=== PATIENT | female | born 1935 | race Caucasian/White ===

== ENCOUNTER 2021-11-23 20:06 | Inpatient (IN) | payer MEDICARE, OTHER ==
[~2021-11-23] VITALS: Ht 152.4 cm; Wt 73.1 kg
[2021-11-23 21:03] LABS: COLLECTION METHOD CLEAN CATCH
[2021-11-23 21:09] LABS: PH 5 (5-8); URINE APPEARANCE Clear (CLEAR/HAZY); URINE BACTERIA Rare /hpf (NONE SEEN); URINE BILIRUBIN Negative (NEGATIVE); URINE BLOOD 1+ (NEGATIVE); URINE COLOR Straw (YELLOW); URINE GLUCOSE Negative (NEGATIVE); URINE KETONE Negative (NEGATIVE); URINE LEUKOCYTE ESTERASE 1+ (NEGATIVE); URINE NITRATE Negative (NEGATIVE); URINE PROTEIN(semi-quant) Negative (NEGATIVE); URINE RBC 0-2 /hpf (0-2); URINE UROBILINOGEN Negative (NEGATIVE)
[2021-11-23 21:24] LABS: BASO % 0.5 % (0.0-2.0); EOS # 0.1 K/mm3 (0.0-0.7); GRAN # 3.4 K/mm3 (1.4-6.5); HEMOGLOBIN 11.6 g/dl (12.5-16.0); LYMPH # 1.3 K/mm3 (1.2-3.4); MEAN CELL VOLUME 78 fl (80.0-100.0); MEAN CORPUSCULAR HEMOGLOBIN 28 pg (27-31); MEAN CORPUSCULAR HGB CONC 36 g/dl (33.0-37.0); MEAN PLATELET VOLUME 9.5 fl (7.4-10.4); MONO # 0.7 K/mm3 (0.1-0.6); MONO % 12.8 % (1.7-9.3); PLATELET COUNT 233 K/mm3 (130-400); RED BLOOD COUNT 4.16 M/mm3 (4.10-5.30); REDCELL DISTRIBUTION WIDTH-CV 12.4 % (11.5-14.5)
[2021-11-23 21:29] LABS: HEMATOCRIT 32.4 % (37.0-47.0)
[2021-11-23 21:53] LABS: ALBUMIN 3.8 gm/dL (3.4-4.8); BILIRUBIN,TOTAL 0.7 mg/dL (0.2-1.2); CALCIUM 8.4 mg/dL (8.4-10.2); CREATININE, serum 1.79 mg/dL (0.57-1.11); POTASSIUM 4.1 mmol/L (3.5-4.5); TOTAL PROTEIN 6.6 gm/dL (6.2-8.1)
[2021-11-23 23:51] LABS: MAGNESIUM 1.5 mg/dL (1.6-2.6); PHOSPHOROUS 3.2 mg/dL (2.3-4.7)
[2021-11-24] VITALS (559 sets, daily range): BP systolic 111–152; BP diastolic 42–73; PULSE 59–70; TEMP 97.5–98.2; O2SAT 39–100
[2021-11-24 00:11] LABS: TSH w REFLEX 2.869 uIU/mL (0.350-4.940)
[2021-11-24 06:45] LABS: CALCIUM 7.9 mg/dL (8.4-10.2); CREATININE, serum 1.73 mg/dL (0.57-1.11); POTASSIUM 3.7 mmol/L (3.5-4.5)
[2021-11-24 07:22] LABS: BASO % 0.7 % (0.0-2.0); EOS # 0.1 K/mm3 (0.0-0.7); EOS % 1.8 % (0.0-4.0); GRAN # 2.8 K/mm3 (1.4-6.5); GRAN % 60.7 % (42.2-75.2); MEAN CELL VOLUME 79 fl (80.0-100.0); MEAN CORPUSCULAR HEMOGLOBIN 28 pg (27-31); MEAN CORPUSCULAR HGB CONC 36 g/dl (33.0-37.0); MEAN PLATELET VOLUME 10.4 fl (7.4-10.4); MONO # 0.6 K/mm3 (0.1-0.6); MONO % 14.1 % (1.7-9.3); PLATELET COUNT 175 K/mm3 (130-400); RED BLOOD COUNT 3.93 M/mm3 (4.10-5.30); REDCELL DISTRIBUTION WIDTH-CV 12.4 % (11.5-14.5)
--- NOTE | 2021-11-24 09:56 | NUR ---
BEDSIDE SHIFT REPORT RECIEVED FROM VU ANGEL. PT CURRENTLY SLEEPING. LINE RUNNING (SEE DRIP FLOWSHEET). VSS, NO ACUTE CHANGES REPORTED OVERNIGHT. BED IN LOWEST POSITION, BED ALARM ON, CALL LIGHT WITHIN REACH. DAUGHTER AT BEDSIDE.
[2021-11-24 11:08] LABS: CALCIUM 7.9 mg/dL (8.4-10.2); CREATININE, serum 1.7 mg/dL (0.57-1.11); POTASSIUM 3.8 mmol/L (3.5-4.5)
--- NOTE | 2021-11-24 11:23 | NUR ---
REPORT GIVEN TO VU WALLACE. PT TRANSFERED TO BED IN WHEELCHAIR WITH FLUIDS (SEE DRIP SHEET) NO SUPP O2 NEEDED. PT PLACED IN BED, BED IN LOWEST POSITION, CALL LIGHT WITHIN REACH AND BEDALARM ON
--- NOTE | 2021-11-24 11:25 | NUR ---
Patient arrived to room 353 from ICU. Patient is A&Ox3, unable to correctly state the date. Patient has NS running at 125mL/hr into her IV; Magnesium Sulfate also infusing at 100mL/hr. Patient tolerating this well. Patient denies any concerns at this time and states she feels okay. Daughter reported that patient has passed gas. Patient denies the urge to have a BM.
[2021-11-24 15:37] LABS: CALCIUM 7.9 mg/dL (8.4-10.2); CREATININE, serum 1.66 mg/dL (0.57-1.11); POTASSIUM 3.9 mmol/L (3.5-4.5)
--- NOTE | 2021-11-24 16:33 | NUR ---
Patient's daughter called stating the patient needed to use the restroom. PCT stated they would be down in 1min. Approx 30seconds after the patient called, the daughter came running down the hallway stating "she is gonna throw up, you better hurry up and get down here" and then ran back to the room. This RN followed right behind w/ an emesis basin, patient had already vomited on the bed and floor. This RN and the PCT cleaned the patient up and replaced the sheets. Patient's daughter then requested that the patient be taken on a walk. Patient agreed to this. Patient does not express any concerns or needs at this time. Family makes a majority of the requests and decisions for the patient, as patient has dementia.
--- NOTE | 2021-11-24 18:34 | NUR ---
Patient has had a few episodes of emesis. Dr. Guidry called for zofran, order placed by this RN. Patient has also had multiple BMs, family concerned for C-Diff. Dr. Guidry informed and this RN requested and order for a stool sample. Dr. Guidry agreed w/ this recommendation. IV in the right forearm was leaky and causing pain, new IV started in the right AC by James.
[2021-11-24 19:21] LABS: CALCIUM 8.3 mg/dL (8.4-10.2); CREATININE, serum 1.63 mg/dL (0.57-1.11)
--- NOTE | 2021-11-24 21:00 | NUR ---
PATIENT IS RESTING IN THE BED.PATIENT IS ALERT AND ORIENTED BUT FORGETFUL AND CONFUSED SOMETIMES.PATIENT IS ON IV FLUIDS DRIPPING WELL.PATIENT DENIES PAIN.PATIENT'S DAUGHTER IS STAYING WITH THE PATIENT OVERNIGHT.SAFETY MEASURES IN PLACE.NO OTHER NEEDS AT THIS TIME.
[2021-11-24 22:49] LABS: CALCIUM 7.9 mg/dL (8.4-10.2); CREATININE, serum 1.63 mg/dL (0.57-1.11)
[2021-11-25 01:18] VITALS: BP 145/61; PULSE 68; TEMP 98.6
[2021-11-25 02:55] LABS: CALCIUM 7.7 mg/dL (8.4-10.2); CREATININE, serum 1.57 mg/dL (0.57-1.11); POTASSIUM 3.7 mmol/L (3.5-4.5)
[2021-11-25 04:42] VITALS: BP 100/61; PULSE 62; TEMP 97.5
--- NOTE | 2021-11-25 06:13 | NUR ---
PATIENT SLEPT THROUGH THE NIGHT.PATIENT'S DAUGHTER SPENT THE NIGHT WITH THE PATIENT.IV NS IN GOOD PROGRESS.PATIENT IS IN Q4 BMPS.STOOL SAMPLE IS PENDING.NO OTHER NEEDS AT THIS TIME.
[2021-11-25 07:24] LABS: CALCIUM 7.5 mg/dL (8.4-10.2); CREATININE, serum 1.59 mg/dL (0.57-1.11); POTASSIUM 3.6 mmol/L (3.5-4.5)
[2021-11-25 08:26] VITALS: BP 123/62; PULSE 64; TEMP 98.2
[2021-11-25 11:11] LABS: CALCIUM 8.1 mg/dL (8.4-10.2); CREATININE, serum 1.65 mg/dL (0.57-1.11); POTASSIUM 3.6 mmol/L (3.5-4.5)
[2021-11-25 12:14] VITALS: BP 135/59; PULSE 67; TEMP 98
--- NOTE | 2021-11-25 13:52 | NUR ---
Manipulative Therapy Specialist met with patient and patient's daughter, Felicia (ph#[phone]) to discuss discharge planning. Patient lives in [place] with her , Cain and reports that her other daughter, Lee Ann (ph#[phone]) lives behind her and checks on her daily. Patient's daughter Felicia also checks in often. Patient sees Dr. Kenny for primary care and obtains medications from [facility] in [place] with no difficulties. Patient does not use any DME but has a wheelchair available for when they go out and need to walk long distances. Patient is independent with ADLS and plans to return home at time of discharge. Felicia reports that when the time comes that patient and her can no longer live at home, they will move in with her. Patient has Advance Directives in EMR which designates her Cain as well as her children: Lee Ann Duarte, and Cain Willoughby. PT worked with patient and recommend home. Discharge Plan: Home with family assistance
[2021-11-25 13:53] LABS: CLOSTRIDIUM DIFF A/B NEG; CLOSTRIDIUM DIFF A/B INTERP NonToxigenic C.diff
--- NOTE | 2021-11-25 14:19 | NUR ---
CONTACTED DR. ZACARIAS WITH RESULTS OF THE PATIENT'S STOOL SAMPLE. THE PATIENT'S C. DIFF PANEL CAME BACK ANTIGEN POSITIVE, TOXIN NEGATIVE. SINCE THE PATIENT IS NOT HAVING ACTIVE STOOLS. INFECTION CONTROL STATES IF THE PATIENT IS NOT HAVING ACTIVE DIARRHEA WE CAN DEFER TO THE DOCTOR ON TREATMENT. DR. ZACARIAS HAS STATED SHE NO LONGER NEEDS TO BE IN PRECAUTIONS. WILL LET INFECTION CONTROL KNOW AND REMOVE SIGNAGE FROM THE PT ROOM.
[2021-11-25 15:53] LABS: CALCIUM 7.9 mg/dL (8.4-10.2); CREATININE, serum 1.79 mg/dL (0.57-1.11); POTASSIUM 3.8 mmol/L (3.5-4.5)
[2021-11-25 16:18] VITALS: BP 122/42; PULSE 65; TEMP 97.3
[2021-11-25 19:25] VITALS: BP 136/47; PULSE 71; TEMP 97.8
[2021-11-25 20:40] LABS: CALCIUM 8.1 mg/dL (8.4-10.2); CREATININE, serum 1.74 mg/dL (0.57-1.11); POTASSIUM 3.7 mmol/L (3.5-4.5)
--- NOTE | 2021-11-25 20:50 | NUR ---
Patient is resting in bed with daughter at the bedside, alert but partially oriented. Denies pain. Pt had a shower assisted by the daughter. IV in RAC leaking and burning, it was discontinued and started a new one in the left hand. Receiving fluids at 75 ml/hr. Assessment completed, no other needs at this time. Call light within reach.
[2021-11-26 00:27] VITALS: BP 122/39; PULSE 70; TEMP 98.1
[2021-11-26 04:26] VITALS: BP 139/45; PULSE 70; TEMP 97.8
--- NOTE | 2021-11-26 05:38 | NUR ---
Patient has been sleeping from midnight. Continue receiving NS AT 75 ml/hr. Daugher rest at the bedside. Report will be given to day RN.
[2021-11-26 06:12] LABS: BASO % 0.5 % (0.0-2.0); EOS # 0.1 K/mm3 (0.0-0.7); EOS % 2.5 % (0.0-4.0); GRAN # 2.6 K/mm3 (1.4-6.5); GRAN % 58.7 % (42.2-75.2); LYMPH # 1.1 K/mm3 (1.2-3.4); LYMPH % 24.5 % (20.0-51.0); MEAN CELL VOLUME 82 fl (80.0-100.0); MEAN CORPUSCULAR HGB CONC 34 g/dl (33.0-37.0); MEAN PLATELET VOLUME 10.2 fl (7.4-10.4); MONO # 0.6 K/mm3 (0.1-0.6); MONO % 13.3 % (1.7-9.3); PLATELET COUNT 193 K/mm3 (130-400); RED BLOOD COUNT 3.25 M/mm3 (4.10-5.30); REDCELL DISTRIBUTION WIDTH-CV 12.8 % (11.5-14.5)
[2021-11-26 06:16] LABS: HEMATOCRIT 26.5 % (37.0-47.0); HEMOGLOBIN 9.1 g/dl (12.5-16.0); MEAN CORPUSCULAR HEMOGLOBIN 28 pg (27-31)
[2021-11-26 06:36] LABS: CALCIUM 7.5 mg/dL (8.4-10.2); CREATININE, serum 1.65 mg/dL (0.57-1.11); POTASSIUM 3.8 mmol/L (3.5-4.5)
[2021-11-26 08:14] VITALS: BP 123/39; PULSE 59; TEMP 98.2
--- NOTE | 2021-11-26 09:31 | NUR ---
Patient laying in bed, daughter is with her in patient room. Patient stated she was feeling mild pain in lower abdomen that is there often. Will review PRN medications.
--- NOTE | 2021-11-26 10:19 | NUR ---
1019: The patient's daughter is at bedside. The patient is complaining of intermittent pain in the abdomen. States it feels like a shock in her left lower quadrant. Unable to numerically rate the pain. The daughter states that she is frustrated that they are working on her sodium, but not figuring out why she is having the abdominal pain. She states she feels as though there is a blockage; the GI doctor did state that there is diverticulosis, however, the daughter said this is a known problem that she has never had linger on like this. The daughter believes she is constipated, however the patient has had bowel movements. The daughter states that she threw up her breakfast, however when this RN came to the room, the daughter had already cleaned out the bucket and this RN was unable to see the emesis. The patient has been passing gas. The patient continues to have intermittent abdominal pain while this RN is in the room. The daughter wants Miralax and to clean her out stating that it seems to be gas or constipation. 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 RN exits the room at 1034. Will contact physician regarding the daughter's concerns.
[2021-11-26 12:05] VITALS: BP 140/83; PULSE 66; TEMP 97.4
--- NOTE | 2021-11-26 12:44 | NUR ---
[facility] met with patient and patient's daughter to present and review IM as patient may discharge home today. Patient verbalized understanding and provided signature. SW placed form in chart and provided copy to patient.
[2021-11-26] MEDS ORDERED: BENTYL 10MG10 MG/CAP PO (13:42)
[2021-11-26] MEDS ORDERED: MIRALAX PA17 GM/Dose PO (13:43)
--- NOTE | 2021-11-26 14:01 | NUR ---
The patient is ready to discharge. IV removed, telemetry taken off, and the patient is getting dressed with the assistance of her daughter. The paperwork is being worked on at this time.
== END 2021-11-26 14:45 | disposition home or self-care (01) | DRG 641 ==
LOC: COL.ER 20:06 → ICU 23:23 → MEDICAL 23:23
PROVIDERS: Nurse Practitioner Family; Physician Assistant; Student in an Organized Health Care Education/Training Program; ADMIT Family Medicine
DX: E87.1 Hypo-osmolality and hyponatremia (principal); N17.9 Acute kidney failure, unspecified; N18.4 Chronic kidney disease, stage 4 (severe); I12.9 Hypertensive chronic kidney disease with stage 1 through stage 4 chronic kidney disease, or unspecified chronic kidney disease; F03.90 Unspecified dementia, unspecified severity, without behavioral disturbance, psychotic disturbance, mood disturbance, and anxiety; K59.00 Constipation, unspecified; E87.8 Other disorders of electrolyte and fluid balance, not elsewhere classified; D64.9 Anemia, unspecified
CPT/HCPCS: 99223-AI; 99233-AI; 99239; J1644; J2405; J3475; J7030